=== PATIENT | female | born 1995 | race Caucasian/White ===

== ENCOUNTER 2019-06-17 02:21 | Emergency (ER) | payer BC ==
[~2019-06-17] VITALS: Ht 167.6 cm; Wt 61.2 kg
[2019-06-17 02:21] VITALS: BP 103/53
--- NOTE | 2019-06-17 02:21 | NUR ---
24 Y/O FEMALE BIB AMBULANCE. PRESENTS TO ED, C/O ETOH INTOXICATION. PER EMT, PT WAS AT [employer] DRINKING UNKNOWN AMOUNT OF TEQUILA SHOTS AND "A COUPLE" OF JOINTS OF MARIJUANNA. PT HAD EPISODES OF N/V PRIOR TO EMS ARRIVAL; NO EPISODES ENROUTE AND AT ARRIVAL AT HOSPITAL. PT DENIES ANY SOB OR CHEST PAIN. C/O ANXIETY. PT PRESENTS TEARFUL AND HYPERVERBAL. PT DENIES ANY PAIN. PT VSS. ERMD AWARE. WILL CONTINUE TO MONITOR.
--- NOTE | 2019-06-17 02:21 | NUR ---
PT TRANSFERRED TO BED #7 FROM [facility]
--- NOTE | 2019-06-17 02:39 | NUR ---
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 PT GAVE CONSENT TO RELEASE INFORMATION TO AILYN REGARDING D/C.
[2019-06-17] MEDS ORDERED: LORazepam 1 MG TAB PO ONE (03:05)
[2019-06-17] MEDS ORDERED: ONDANSETRON 4 MG ODT PO ONE (03:10)
[2019-06-17 03:55] VITALS: BP 103/53
--- NOTE | 2019-06-17 03:55 | NUR ---
PT DISCHARGED WITH PAPERWORK. RX ATARAX, ZOFRAN. EDUCATED PT REGARDING MEDICATIONS AND S/E. EDUCATED PT REGARDING D/C DIAGNOSIS AND INSTRUCTIONS. PT VERBALIZED UNDERSTANDING OF TEACHING. TOLD PT TO FOLLOW UP WITH PCP AND WHEN TO RETURN TO ED. PT VSS. ALL QUESTIONS ANSWERED.
== END 2019-06-17 03:55 | disposition home or self-care (01) ==
LOC: MED 02:21
DX: F41.9 Anxiety disorder, unspecified (principal); F10.129 Alcohol abuse with intoxication, unspecified; F12.129 Cannabis abuse with intoxication, unspecified
CPT/HCPCS: 99283; Q0162